=== PATIENT | female | born 1935 | race Two or more races ===

== ENCOUNTER → 2020-08-06 17:26 | Outpatient (CLI) | payer OTHER | END | disposition home or self-care (01) | LOC: RAD 17:26 | PROVIDERS: ATTEND Orthopaedic Surgery | DX: M17.11 Unilateral primary osteoarthritis, right knee (principal) ==

== ENCOUNTER 2020-08-13 09:15 | Inpatient (IN) | payer OTHER ==
[~2020-08-13] VITALS: Ht 149.9 cm; Wt 54.0 kg
[2020-08-13] MEDS ORDERED: LEVOTHYROXINE25 MCG PO (14:05)
[2020-08-13] MEDS ORDERED: ADULT LOW DOSE81 M1 PO (14:06)
[2020-08-13] MEDS ORDERED: ATACAND32 MG PO (14:06)
[2020-08-13] MEDS ORDERED: PROTONIX40 MG PO (14:06)
[2020-08-13] MEDS ORDERED: PRAVASTATIN SOD40 MG PO (14:07)
[2020-08-13] MEDS ORDERED: AMLODIPINE PO (14:07)
[2020-08-21] MEDS ORDERED: AMLODIPINE BESYL5 MG PO (08:26)
[2020-08-21] MEDS ORDERED: NORVASC2.5 MG (08:27)
[2020-08-21] MEDS ORDERED: DICLOFENAC SODI50 MG PO (08:28)
[2020-08-22] MEDS ORDERED: ELIQUIS2.5 MG PO (16:15)
[2020-08-22] MEDS ORDERED: DUI500 PO (16:15)
[2020-08-22] MEDS ORDERED: PERCOCET 5-3251 EACH PO (16:15)
== END 2020-08-22 18:22 | DRG 470 ==
LOC: O/R 08-20 05:34 → SURG 08-20 05:34 → SURH 08-20 09:15 → SURG 08-20 11:07 → SURH 08-20 12:00 → SURG 08-22 18:22
PROVIDERS: ADMIT Orthopaedic Surgery; ATTEND Orthopaedic Surgery
PROC: 0MNN0ZZ Release Right Knee Bursa and Ligament, Open Approach (ICD-10-PCS; 2020-08-20)
PROC: 0SRC0J9 Replacement of Right Knee Joint with Synthetic Substitute, Cemented, Open Approach (ICD-10-PCS; principal; 2020-08-20 12:00)
DX: M17.11 Unilateral primary osteoarthritis, right knee (principal); M80.00XA Age-related osteoporosis with current pathological fracture, unspecified site, initial encounter for fracture; D62 Acute posthemorrhagic anemia; M85.461 Solitary bone cyst, right tibia and fibula; M22.11 Recurrent subluxation of patella, right knee; Z20.828 Contact with and (suspected) exposure to other viral communicable diseases